=== PATIENT | female | born 1995 | race Caucasian/White ===

== ENCOUNTER 2018-01-26 16:33 | Emergency (ER) | payer SELFPAY ==
[2018-01-26 17:16] VITALS: BP 118/67
[2018-01-26] MEDS ORDERED: MOTRIN PO ONE (23:25)
--- NOTE | 2018-01-26 23:35 | XRay Report ---
FINAL REPORT PROCEDURE: XR CHEST ROUTINE 2V TECHNIQUE: PA and lateral chest radiographs were obtained. CPT 61010 HISTORY: chest tightness with pain COMPARISON: No prior studies are available for comparison. FINDINGS: Heart: Normal. Mediastinum/Vessels: Normal. Lungs/Pleural space: Normal. Bony thorax: No acute osseous abnormality. Other: IMPRESSION: Normal examination.
--- NOTE | 2018-01-27 00:50 | Emergency Department Report ---
ED General Adult HPI - General Chief complaint: Chest Pain Stated complaint: CHEST PAIN Time Seen by Provider: 01/26/18 22:44 Source: patient Mode of arrival: Ambulatory Limitations: No Limitations - History of Present Illness Initial comments: 22-year-old female comes to the emergency room complaining of chest pain for several weeks. She states that her chest it so tight that she feels like she can't breathe. Patient has no other signs or symptoms. She reports that the pain is constant sleeping makes it worse chest pain is ongoing denies any cough, feels like it's crushing, feels like she has to yarns to get enough air in her lungs. She denies any nasal congestion or runny nose no nausea no vomiting no fever or chills. She has no past medical history currently takes no medications and has no known drug allergies. Location: chest Radiation: non-radiation Severity scale (0 -10): 5 Quality: crushing Improves with: other (yarning or taking a deep breath) Associated Symptoms: denies other symptoms. denies: cough, diaphoresis, fever/ chills, headaches, nausea/vomiting, syncope Treatments Prior to Arrival: none - Related Data Previous Rx's Medication Instructions Recorded Last Taken Type Ibuprofen [Motrin 600 MG tab] 600 mg PO Q8H PRN #30 tablet 01/27/18 Unknown Rx Allergies Allergy/AdvReac Type Severity Reaction Status Date / Time No Known Allergies Allergy Unverified 01/26/18 17:13 ED Review of Systems ROS: Stated complaint: CHEST PAIN Other details as noted in HPI Comment: All other systems reviewed and negative Cardiovascular: chest pain ED Past Medical Hx - Past Medical History Previous Medical History?: No - Surgical History Past Surgical History?: No - Social History Smoking Status: Never Smoker Substance Use Type: None - Medications Home Medications: Home Medications Medication Instructions Recorded Confirmed Last Taken Type Ibuprofen [Motrin 600 MG tab] 600 mg PO Q8H PRN #30 tablet 01/27/18 Unknown Rx ED Physical Exam - General Limitations: No Limitations General appearance: alert, in no apparent distress, other (nontoxic comfortable able to speak in complete sentences or shortness of breathing appreciated) - Head Head exam: Present: atraumatic, normocephalic - Eye Eye exam: Present: EOMI - ENT ENT exam: Present: mucous membranes moist - Respiratory Respiratory exam: Present: normal lung sounds bilaterally, chest wall tenderness. Absent: respiratory distress - Cardiovascular Cardiovascular Exam: Present: regular rate, normal rhythm. Absent: systolic murmur, diastolic murmur, rubs, gallop - GI/Abdominal GI/Abdominal exam: Present: soft, normal bowel sounds - Extremities Exam Extremities exam: Present: full ROM - Back Exam Back exam: Present: normal inspection, full ROM - Neurological Exam Neurological exam: Present: alert, oriented X3 - Psychiatric Psychiatric exam: Present: normal affect, normal mood - Skin Skin exam: Present: warm, dry, intact, normal color. Absent: rash ED Course Vital Signs 01/26/18 17:13 Temperature 98.6 F Pulse Rate 78 Respiratory 16 Rate Blood Pressure 118/67 O2 Sat by Pulse 99 Oximetry ED Medical Decision Making - Radiology Data Radiology results: report reviewed FINAL REPORT PROCEDURE: XR CHEST ROUTINE 2V TECHNIQUE: PA and lateral chest radiographs were obtained. CPT 50023 HISTORY: chest tightness with pain COMPARISON: No prior studies are available for comparison. FINDINGS: Heart: Normal. Mediastinum/Vessels: Normal. Lungs/Pleural space: Normal. Bony thorax: No acute osseous abnormality. Other: IMPRESSION: Normal examination. Transcribed By: [facility] [place] Dictated By: MU SEE Electronically Authenticated By: MU SEE Signed Date/Time: 01/26/182333 DD/ 33 TD/TT: 01/26/182333 - Medical Decision Making Patient has been evaluated by this provider fast track. Ibuprofen given for pain management. Chest X ray ordered which shows normal examination. Patient is sat 99% on room air with respiratory rate of 16 she's in no acute distress We'll discharge patient to follow up with a primary care provider. Also give patient a prescription for ibuprofen for costochondritis. Critical care attestation.: If time is entered above; I have spent that time in minutes in the direct care of this critically ill patient, excluding procedure time. ED Disposition Clinical Impression: Costochondritis Disposition: [id number] TO HOME OR SELFCARE Is pt being admited?: No Does the pt Need Aspirin: No Condition: Stable Instructions: Costochondritis (ED) Additional Instructions: Please take pain medication as prescribed. Follow up with her primary care provider if symptoms persist or gets worse. Prescriptions: Ibuprofen [Motrin 600 MG tab] 600 mg PO Q8H PRN #30 tablet PRN Reason: Pain Referrals: PRIMARY CARE, [Primary Care Provider] - 3-5 Days [facility] [Provider Group] - 3-5 Days Forms: Work/School Release Form(ED)
== END 2018-01-27 01:07 | disposition home or self-care (01) ==
LOC: ED 16:33
DX: M94.0 Chondrocostal junction syndrome [Tietze] (principal)
CPT/HCPCS: 71046; 93005; 93010; 99283